=== PATIENT | male | born 1975 | race Caucasian/White ===

== ENCOUNTER 2019-05-06 07:53 | Emergency (ER) | payer SELFPAY ==
[~2019-05-06] VITALS: Ht 175.3 cm; Wt 90.1 kg
--- NOTE | 2019-05-06 08:21 | NUR ---
PT TO ED FOR "WORST HOWARD OF LIFE" SINCE YESTERDAY. PT ENDORSES N/V R/T HOWARD. PT CONNECTED TO MONITORS. VSS. NO NEEDS EXPRESSED.
[2019-05-06] MEDS ORDERED: KETOROLAC 30 MG/1 ML IM ONE (08:30)
[2019-05-06] MEDS ORDERED: METOCLOPRAMIDE 5 MG/ML, 2ML IVPush ONE (08:30)
[2019-05-06] MEDS ORDERED: METOCLOPRAMIDE 5 MG/ML, 2ML IM ONE (08:30)
[2019-05-06] MEDS ORDERED: SODIUM CHLORIDE FLUSH 10ML SYR IVF ONE (08:30)
[2019-05-06] MEDS ORDERED: DIPHENHYDRAMINE 50 MG/ML, 1ML IM ONE (08:30)
[2019-05-06] MEDS ORDERED: DIPHENHYDRAMINE 50 MG/ML, 1ML IVPush ONE (08:30)
[2019-05-06] MEDS ORDERED: KETOROLAC 30 MG/1 ML IVPush ONE (08:30)
--- NOTE | 2019-05-06 08:32 | NUR ---
AFTER DISCUSSION WT PT AND PROVIDER, NO IV AT THIS TIME. PROVIDER WILL CHANGE ORDERS.
[2019-05-06] MEDS ORDERED: METOCLOPRAMIDE 5 MG/ML, 2ML ONE (08:35)
[2019-05-06] MEDS ORDERED: KETOROLAC 30 MG/1 ML ONE (08:35)
[2019-05-06] MEDS ORDERED: DIPHENHYDRAMINE 50 MG/ML, 1ML ONE (08:35)
--- NOTE | 2019-05-06 08:49 | NUR ---
PT MEDICATED PER APR AND VERY THANKFUL AND POLITE. PT CONTINUES TO VOMIT DURING ADMIN. VS REMAIN STABLE. NO NEEDS EXRPESSED AT THIS TIME.
--- NOTE | 2019-05-06 09:13 | NUR ---
PT REPORTS HOWARD REMAINS, BUT IS NO LONGER NAUSEATED. PT ALSO STATES THAT HE IS DROWSY. VSS. EDPA NOTIFIED AND NEW ORDERS RECEIVED.
[2019-05-06] MEDS ORDERED: ACETAMINOPHEN 500 MG TABLET ONE (09:28)
[2019-05-06 09:30] VITALS: BP 126/76
--- NOTE | 2019-05-06 09:30 | NUR ---
PT RESTING IN ROOM WITH LIGHTS DIMMED AND EYES CLOSED. VSS. PT STATES HOWARD IS DOWN TO 3/10 AND IS DECLINING TYLENOL AT THIS TIME. PT STATES HE IS WELL ENOUGH TO GO HOME. WILL NOTIFY EDPA AND EDMD.
--- NOTE | 2019-05-06 09:55 | NUR ---
TASK RN: Patient/Caregiver given discharge instructions and they have confirmed that they understand the instructions. Patient ambulatory with steady gait. PT LEFT WITH ALL PERSONAL BELONGINGS.
== END 2019-05-06 09:57 | disposition home or self-care (01) ==
LOC: ED 09:27
DX: R51 Headache (principal)
CPT/HCPCS: 96372; 99284; J1200; J1885; J2765